=== PATIENT | female | born 1990 | race Two or more races ===

== ENCOUNTER 2021-10-28 18:47 | Emergency (ER) | payer OTHER, SELFPAY ==
[2021-10-28 20:14] VITALS: BP 128/83; PULSE 98; RESP 18; TEMP 37.4; O2SAT 97; BMI 35.2
[2021-10-28 20:32] LABS: MANUAL DIFF FLAG NO
[2021-10-28 20:33] LABS: Basophils Percent Auto 0.3 % (0-2); Eosinophils Absolute Auto 0.4 X10*3/uL (0.0-0.4); Eosinophils Percent Auto 4.1 % (0-4); Hematocrit 28.5 % (37.0-47.0); Hemoglobin 8.8 g/dl (12.0-16.0); Imm Gran Abs Auto 0.03 X10*3/uL (0.00-0.03); Imm Gran Pct Auto 0.3 % (0.0-0.4); Lymphocytes Absolute Auto 2.1 X10*3/uL (1.2-4.9); Mean Corpuscular HGB Conc 30.9 g/dl (31.0-35.0); Mean Corpuscular Hemoglobin 26.7 pg (27.0-33.0); Mean Corpuscular Volume 86.6 fL (80.0-98.0); Mean Platelet Volume 8.6 fL (9.4-12.3); Monocytes Absolute Auto 0.7 X10*3/uL (0.1-1.2); Neutrophils Absolute Auto 5.6 x10*3/uL (2.0-8.3); Neutrophils Percent Auto 63.3 % (45-73); Platelet Count 540 X10*3/uL (160-400); Red Blood Count 3.29 X10*6/uL (4.20-5.50); Red Cell Distribution Width 14.4 % (11.0-16.0); White Blood Count 8.8 X10*3/uL (4.8-10.8)
[2021-10-28 21:07] LABS: Lactic Acid 1.1 mmol/L (0.5-2.0)
[2021-10-28 21:12] LABS: Alanine Aminotransferase 14 U/L (0-31); Albumin Level 3.8 g/dL (3.5-5.0); Alkaline Phosphatase 64 U/L (39-117); Anion Gap 10 (12-20); Aspartate Amino Transferase 14 U/L (5-31); Bilirubin Total 0.3 mg/dL (0.0-1.0); Blood Urea Nitrogen 6 mg/dL (9-16); Calcium 9.3 mg/dL (8.4-10.2); Carbon Dioxide 29 mmol/L (22-29); Chloride 103 mmol/L (96-108); Creatinine Clr Calc Pharmacy 120.9; Estimated Glomerular Filt Rate > 60; Glucose Random 102 mg/dL (60-115); Potassium 4.2 mmol/L (3.3-5.1); Sodium 138 mmol/L (135-145); Total Protein 6.6 g/dL (6.5-8.0)
[2021-10-28 21:24] LABS: COVID-19 Test Negative (Negative); IDNOW Serial# 9DD0AD1C
--- NOTE | 2021-10-29 03:07 | ED.GENADULT ---
HPI - General Adult General Chief complaint: General Medical Stated complaint: plastic surgery 10/01 rt breast incision is openin Time Seen by Provider: 10/28/21 21:18 Source: patient Mode of arrival: ambulatory Limitations: no limitations History of Present Illness HPI narrative: patient had plastic surgery done in the [place]. She had a abdominal plasty and breast augmentation. she is now having issues with both. Onset (ago): week(s) Severity: mild Pain Consistency: constant Relieving factors: none Exacerbating factors: none Associated symptoms: denies other symptoms Review of Systems Constitutional: Constitutional: Reports no additional constitutional complaints Eyes: Eyes: Reports no additional eye complaints ENT: Denies dizziness Cardiovascular: Cardiovascular: Reports no additional cardiovascular complaints Respiratory: Respiratory: Reports as per HPI Gastrointestinal: Gastrointestinal: Reports no additional gastrointestinal complaints Genitourinary: Genitourinary: Reports no additional female genitourinary complaints Musculoskeletal: Musculoskeletal: Reports no additional musculoskeletal complaints Integumentary/Breasts: Skin/Breast: Denies rash Neurologic: Reports system reviewed and no additional complaints, except as documented, Denies dizziness and Denies Sensory deficit (Neuro) Psychiatric: Psychiatric: Denies anxiety Physical Exam Vital Signs: Vital Signs: Last Vital Signs Temp 99.4 F 10/28/21 20:14 Pulse 98 10/28/21 20:14 Resp 18 10/28/21 20:14 BP 128/83 10/28/21 20:14 Pulse Ox 97 10/28/21 20:14 BMI result Body Mass Index 35.2 Const: General: healthy appearing Nutritional Appearance: average body habitus Orientation/consciousness: oriented to person and patient oriented x3 Limitations: no limitations HENMT: Head: Yes normal to inspection Ears: external ears normal General nose exam: Normal external nose present Mouth: Normal oral and palatal mucosa present and oropharynx normal Throat: Yes posterior oropharynx normal Eyes: General: appearance normal, both eyes and all related structures Neck: Other: supple Neck: Yes normal visual inspection Chest: Chest palpation & inspection: normal inspection of the chest Resp: Auscultation: clear to auscultation bilaterally Cardio: Jugular venous distension: no JVD Rate: regular rate Rhythm: regular rhythm Heart sounds: S1 normal heart sound present and S2 normal heart sound present GI: Inspection: Yes normal to inspection Palpation (GI): Soft to palpation, nontender and No hepatosplenomegaly present Auscultation: normal bowel sounds : General: Yes no CVA tenderness Back/Spine/Pelvis: Back: no CVA tenderness Skin: Other: multiple healing wounds to breast, abdomen. Pressure ulcer with slight wound dehiscence under right breast and along suture line of abdominal plasty. Neuro: General: oriented to person and patient oriented x3 Cranial nerves: Yes CN's II-XII intact bilaterally Motor exam (neuro): 5/5 motor strength present throughout Sensory Exam: No Sensory deficit (Neuro) Extrem: General: Yes normal to inspection Psych: Appearance: grossly normal Course Reevaluation(s) Reevaluation #1: no evidence of infection, will refer to wound care clinic Time: 03:36 Medical Decision Making Lab Data Result diagrams: 10/28/21 20:27 10/28/21 20:46 Labs: Lab Results 10/28/21 10/28/21 10/28/21 Range/Units 20:27 20:46 20:46 WBC 8.8 (4.8-10.8) X10*3/uL RBC 3.29 L (4.20-5.50) X10*6/uL Hgb 8.8 L (12.0-16.0) g/dl Hct 28.5 L (37.0-47.0) % MCV 86.6 (80.0-98.0) fL MCH 26.7 L (27.0-33.0) pg MCHC 30.9 L (31.0-35.0) g/dl RDW 14.4 (11.0-16.0) % Plt Count 540 H (160-400) X10*3/uL MPV 8.6 L (9.4-12.3) fL Immature Gran % (Auto) 0.3 (0.0-0.4) % Neut % (Auto) 63.3 (45-73) % Lymph % (Auto) 24.0 (20-40) % [place] % (Auto) 8.0 (2-11) % Eos % (Auto) 4.1 H (0-4) % Baso % (Auto) 0.3 (0-2) % Lymph # (Auto) 2.1 (1.2-4.9) X10*3/uL [place] # (Auto) 0.7 (0.1-1.2) X10*3/uL Eos # (Auto) 0.4 (0.0-0.4) X10*3/uL Baso # (Auto) 0.0 (0.0-0.2) X10*3/uL Abs Immat Gran (auto) 0.03 (0.00-0.03) X10*3/uL Absolute Neuts (auto) 5.6 (2.0-8.3) x10*3/uL Absolute Nucleated RBC 0.000 (0.0-0.012) X10*3/uL Nucleated RBC % (auto) 0.0 (0.0-0.2) /100WBC Sodium 138 (135-145) mmol/L Potassium 4.2 (3.3-5.1) mmol/L Chloride 103 (96-108) mmol/L Carbon Dioxide 29 (22-29) mmol/L Anion Gap 10 L (12-20) BUN 6 L (9-16) mg/dL Creatinine 0.65 (0.5-1.4) mg/dL Estim Creat Clear Calc 120.9 Estimated GFR > 60 Random Glucose 102 (60-115) mg/dL Lactic Acid 1.1 (0.5-2.0) mmol/L Calcium 9.3 (8.4-10.2) mg/dL Total Bilirubin 0.3 (0.0-1.0) mg/dL AST 14 (5-31) U/L ALT 14 (0-31) U/L Alkaline Phosphatase 64 (39-117) U/L Total Protein 6.6 (6.5-8.0) g/dL Albumin 3.8 (3.5-5.0) g/dL COVID-19 ([facility]) (Negative) COVID-19 Clin Com 10/28/21 Range/Units 20:46 WBC (4.8-10.8) X10*3/uL RBC (4.20-5.50) X10*6/uL Hgb (12.0-16.0) g/dl Hct (37.0-47.0) % MCV (80.0-98.0) fL MCH (27.0-33.0) pg MCHC (31.0-35.0) g/dl RDW (11.0-16.0) % Plt Count (160-400) X10*3/uL MPV (9.4-12.3) fL Immature Gran % (Auto) (0.0-0.4) % Neut % (Auto) (45-73) % Lymph % (Auto) (20-40) % [place] % (Auto) (2-11) % Eos % (Auto) (0-4) % Baso % (Auto) (0-2) % Lymph # (Auto) (1.2-4.9) X10*3/uL [place] # (Auto) (0.1-1.2) X10*3/uL Eos # (Auto) (0.0-0.4) X10*3/uL Baso # (Auto) (0.0-0.2) X10*3/uL Abs Immat Gran (auto) (0.00-0.03) X10*3/uL Absolute Neuts (auto) (2.0-8.3) x10*3/uL Absolute Nucleated RBC (0.0-0.012) X10*3/uL Nucleated RBC % (auto) (0.0-0.2) /100WBC Sodium (135-145) mmol/L Potassium (3.3-5.1) mmol/L Chloride (96-108) mmol/L Carbon Dioxide (22-29) mmol/L Anion Gap (12-20) BUN (9-16) mg/dL Creatinine (0.5-1.4) mg/dL Estim Creat Clear Calc Estimated GFR Random Glucose (60-115) mg/dL Lactic Acid (0.5-2.0) mmol/L Calcium (8.4-10.2) mg/dL Total Bilirubin (0.0-1.0) mg/dL AST (5-31) U/L ALT (0-31) U/L Alkaline Phosphatase (39-117) U/L Total Protein (6.5-8.0) g/dL Albumin (3.5-5.0) g/dL COVID-19 ([facility]) Negative (Negative) COVID-19 Clin Com See Note Discharge Plan Discharge Clinical Impression: Dehiscence of external surgical wound Patient Disposition: Home, Self-Care Instructions: Wound Dehiscence (ED) Additional Instructions: Follow up with wound care clinic or plastic surgeon regarding your wound dehiscence
[2021-10-29 04:19] VITALS: BP 131/78; PULSE 91; RESP 16; O2SAT 100
== END 2021-10-29 04:21 | disposition home or self-care (01) ==
LOC: HO.ED 10-29 04:08
PROVIDERS: Emergency Medicine; Emergency Provider Emergency Medicine; PCP Internal Medicine
DX: T81.31XA Disruption of external operation (surgical) wound, not elsewhere classified, initial encounter (principal); Y83.9 Surgical procedure, unspecified as the cause of abnormal reaction of the patient, or of later complication, without mention of misadventure at the time of the procedure; Y92.9 Unspecified place or not applicable; Z20.822 Contact with and (suspected) exposure to COVID-19; Z79.899 Other long term (current) drug therapy
CPT/HCPCS: 36415; 80053; 83605; 85025; 87040; 87635; 99283; 99284

== ENCOUNTER 2021-11-03 13:51 | Outpatient (RCR) | payer OTHER, SELFPAY | END 2021-12-16 09:12 | disposition home or self-care (01) | LOC: HO.WCC 13:51 | PROVIDERS: PCP Internal Medicine; Visit Provider Surgery | DX: L98.492 Non-pressure chronic ulcer of skin of other sites with fat layer exposed (principal); T81.31XA Disruption of external operation (surgical) wound, not elsewhere classified, initial encounter; Z79.2 Long term (current) use of antibiotics; Z98.890 Other specified postprocedural states | CPT/HCPCS: 11042; 99212; 99214 ==

== ENCOUNTER 2025-09-16 13:11 | Outpatient (AMB) | payer OTHER, SELFPAY ==
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
--- OUTSIDE RECORDS SUMMARY | 2025-09-16 15:09 | XMS_ITS | Clinical Summary ---
Author Organization [facility] Address [address] [place] [address] Phone Care Team Providers Care Host Name Role Phone Physician, Pcp Unknown Primary Care Provider Kristel vailable Surgical History Surgery Date Site/Laterality Comments OVARIAN CYST REMOVAL PROCEDURE: ME OVARIAN CYSTECTOMY UNI/BI OTHER SURGICAL HISTORY PROCEDURE: ME BIOPSY CERVIX SINGLE/MULT/EXCISION OF LESION SPX ANKLE SURGERY 03/04/2012 PROCEDURE: HISTORICAL ANKLE SURGERY; COMMENT: ankle fusion OTHER SURGICAL HISTORY PROCEDURE: HISTORY OTHER; COMMENT: surgery for Hirschsprungs disease Medical History Medical History Date Comments Class 2 obesity due to exces s calories without serious comorbidity with body mass index (BMI) of 39.0 to 39.9 in adult 03/25/2021 DX:Class 2 obesity due to ex cess calories without serious comorbidity with body mass index (BMI) of 39.0 to 39.9 in adult History of Hirschsprung's disease 04/09/2021 DX:History of Hirschsprung's disease Migraine 04/09/2021 DX:Migraine PCOS (polycystic ovarian syndrome) 04/09/2021 DX:PCOS (polycystic ovarian syndrome) Family History Medical History Relation Name Comments COPD Father Liver disease Father Nephrolithiasis Father Diabetes Mother Hyperlipidemia Mother Hypertension Mother CAD Diabetes Paternal Grandmother Relation Name Status Comments Father Alive Maternal Grandfather Maternal Grandmother Mother Paternal Grandmother Social History Tobacco Use Types Packs/Day Years Used Date Smoking Tobacco: Never Smokeless Tobacco: Never Alcohol Use Standard Drinks/Week Comments Never 0 (1 standard drink = 0.6 oz pur e alcohol) Comments Unknown Sex and Gender Information Value Date Recorded Sex Assigned at Not on file Legal Sex Female 10:19 AM EST Gender Identity Not on file Sexual Orientation Not on file Obstetrics History Last Filed Vital Signs Vital Sign Reading Time Taken Comments Blood Pressure 113/63 03/08/2025 12:35 AM EDT Pulse 70 03/08/2025 12:35 AM EDT Temperature 36.6 C (97.9 F) 03/08/2025 12:35 AM EDT Respiratory Rate 17 03/08/2025 12:35 AM EDT Oxygen Saturation 100% 03/08/2025 12:35 AM EDT Inhaled Oxygen Concentration - - Weight 61.2 kg (135 lb) 03/07/2025 8:50 PM EDT Height 157.5 cm (5' 2 ) 03/07/2025 8:50 PM EDT Body Mass Index 24.69 03/07/2025 8:50 PM EDT Plan of Treatment Health Maintenance Due Date Last Done Comments Cervical Cancer Screening: Pap Smear 2013 Cholesterol Screening (Lipid Panel) 09/18/2022 HIV Screening 09/18/2022 Hepatitis C Screening 09/18/2022 Social Influencers of Health Screening 09/18/2022 Depression Screening 10/16/2024 Hypertension/CHF/CAD Annual BMP Blood Test 03/08/2025 COVID-19 Vaccine (2 - season) 2025 02/17/2021 Influenza Vaccine (#1) 2025 09/30/2008 DTaP,Tdap,and Td Vaccines (9 - Td or Tdap) 05/21/2033 05/21/2023, 12/13/2018, 09/30/2008, Additional history exists RSV Immunization Adult Patients (1 - 1-dose 75+ series) 2067 HIB Vaccines Completed 07/09/1993, 06/17, 1992, Additional history exists Hepatitis B Vaccines Completed 02/29/1996, 10/31/1995, 08/29/1995 IPV Vaccines Completed 06/04/1997, 10/17, 07/09/1993, Additional history exists MMR Vaccines Completed 06/04/1997, 07/09/1994 Meningococcal ACWY Vaccine Aged Out 07/11/2007 N o longer eligible based on patient's age to complete this topic Varicella Vaccines Completed 07/11/2007, 06/29/1998 HPV Vaccines Completed 01/22/2008, 11/2006, 07/11/2007 Hepatitis A Vaccines Aged Out No long er eligible based on patient's age to complete this topic Meningococcal B Vaccine Aged Out No l onger eligible based on patient's age to complete this topic Pneumococcal Vaccine: Pediatrics (0 to 5 Years) and At-Risk Patients (6 to 49 Years) Aged Out No longer eligible based on patient's age to complete this topic RSV Immunization Patients Under 20 months Aged Out No longer eligible based on patient's age to complete this topic Insurance [employer] [employer] Care Teams Host Relationship Specialty Start Date End Date Physician, Pcp Unknown PCP - General 03/08/25
== END 2025-09-16 14:12 | disposition home or self-care (01) ==
PROVIDERS: PCP Internal Medicine; Visit Provider Psychiatry & Neurology Neurology
DX: S06.9XAA Unspecified intracranial injury with loss of consciousness status unknown, initial encounter (principal); F07.81 Postconcussional syndrome; R51.9 Headache, unspecified; R56.9 Unspecified convulsions
CPT/HCPCS: 99205

== ENCOUNTER → 2025-09-16 13:11 | Outpatient (BNVA) | payer OTHER, SELFPAY | PROVIDERS: PCP Internal Medicine; Visit Provider Psychiatry & Neurology Neurology | DX: S06.9XAA Unspecified intracranial injury with loss of consciousness status unknown, initial encounter (principal); F07.81 Postconcussional syndrome; R51.9 Headache, unspecified; R56.9 Unspecified convulsions; Y04.2XXA Assault by strike against or bumped into by another person, initial encounter; Y92.9 Unspecified place or not applicable | CPT/HCPCS: 99202 ==